=== PATIENT | male | born 2000 | race Caucasian/White ===

== ENCOUNTER 2020-04-14 16:42 | Emergency (ER) | payer OTHER ==
[2020-04-14 17:14] LABS: RAPID STREP SCREEN Negative (Negative)
[2020-04-14] MEDS ORDERED: DEXAMETHASONE 10 MG/ML VIAL PO STA (17:15)
[2020-04-14] MEDS ORDERED: cephALEXin 250 MG CAPSULE PO STA (17:15)
--- NOTE | 2020-04-14 17:17 | ED Physician Documentation ---
History of Present Illness - Stated complaint Stated Complaint: SORE THROAT,HEADACHE,EAR PAIN - Chief complaint Chief Complaint: Heent - History obtained from History obtained from: Patient - History of Present Illness Timing: How many days ago (3) Pain level max: 8 Pain level now: 7 - Additonal information Additional information: 20-year-old male presents to the emergency department for sore throat for the past 3 days. Worse with swallowing, better with rest. No cough. Has had nasal congestion and sinus pressure as well. No vomiting. No abdominal pain. No fevers Review of Systems Constitutional: denies: Fever, Chills GI: denies: Vomiting, Diarrhea Skin: denies: Rash Musculoskeletal: denies: Neck pain, Back pain Neurologic: denies: Headache PD PAST MEDICAL HISTORY - Past Medical History Past Medical History: No - Past Surgical History Past Surgical History: No - Present Medications Home Medications: Ambulatory Orders Medication Instructions Recorded Confirmed Cephalexin [Keflex] 500 mg PO Q6H #40 capsule 04/14/20 Ibuprofen [Motrin] 800 mg PO Q8H PRN #30 tablet 04/14/20 - Allergies Allergies/Adverse Reactions: Allergies Allergy/AdvReac Type Severity Reaction Status Date / Time No Known Drug Allergies Allergy Verified 04/14/20 16:45 - Social History Does the pt smoke?: No Smoking Status: Never smoker Does the pt drink ETOH?: No Does the pt have substance abuse?: No PD ED PE NORMAL - Vitals Vital signs reviewed: Yes - General General: Alert and oriented X 3, No acute distress - HEENT HEENT: Ears normal, Moist mucous membranes, Other (Posterior oropharynx is erythematous with tonsillar exudates. Normal phonation. No trismus. Uvula midline.) - Neck Neck: Supple, no meningeal sign, Other (Shotty anterior lymphadenopathy) - Cardiac Cardiac: RRR - Respiratory Respiratory: No respiratory distress, Clear bilaterally - Abdomen Abdomen: Soft, Non tender, Non distended - Derm Derm: Warm and dry - Extremities Extremities: No edema - Neuro Neuro: Alert and oriented X 3 - Psych Psych: Normal mood, Normal affect Results - Vitals Vitals: Vital Signs - 24 hr 04/14/20 04/14/20 16:45 17:40 Temperature 36.7 C Heart Rate 96 90 Respiratory 16 20 Rate Blood Pressure 158/90 H 150/85 H O2 Saturation 95 100 Oxygen O2 Source Room air - Labs Labs: Laboratory Tests 04/14/20 16:50 Group A Strep Rapid Negative PD MEDICAL DECISION MAKING - ED course Complexity details: reviewed results, considered differential, d/w patient ED course: Patient with an exam that is consistent with streptococcal pharyngitis. Rapid strep is negative, but we will treat with antibiotics pending the culture given his symptoms. Given dexamethasone for swelling. Tolerating p.o. without difficulty. No peritonsillar or retropharyngeal abscess. Patient counseled regarding signs and symptoms for which I believe and urgent re-evaluation would be necessary. Patient with good understanding of and agreement to plan and is comfortable going home at this time This document was made in part using voice recognition software. While efforts are made to proofread this document, sound alike and grammatical errors may occur. Departure - Departure Disposition: 01 Home, Self Care Clinical Impression: Strep pharyngitis Condition: Good Instructions: ED Strep Pharyngitis Conf Follow-Up: your,doctor as needed [Other] Prescriptions: Cephalexin [Keflex] 500 mg PO Q6H #40 capsule Ibuprofen [Motrin] 800 mg PO Q8H PRN #30 tablet PRN Reason: PAIN &/OR FEVER Comments: Drink plenty of water. Return if you worsen. Take all antibiotics until gone. Discharge Date/Time: 04/14/20 17:42
[2020-04-14 17:41] VITALS: BP 150/85
== END 2020-04-14 17:42 | disposition home or self-care (01) ==
LOC: ED 16:42
DX: J02.0 Streptococcal pharyngitis (principal)
CPT/HCPCS: 87070; 87430; 99283; 99284; A9270